=== PATIENT | female | born 1965 | race Caucasian/White ===

== ENCOUNTER → 2016-07-25 | Outpatient (CLI) | payer OTHER ==
[~2016-07-25] MED LIST: AMLODIPINE BESY1 TAB PO; BUSPIRONE HCL10 MG PO; DULOXETINE HCL60 MG PO; HYDROCHLOROTHIA25 M1 PO; KCL PO; KEFLEX500 MG PO; LASIX40 MG PO; LOSARTAN POTAS100 M1 PO; PROVENTIL0.09 MG/A1 INH; ZITHROMAX250 MG PO
== END | disposition home or self-care (01) ==
LOC: RAD 22:10
DX: M54.2 Cervicalgia (principal); M54.42 Lumbago with sciatica, left side; M25.511 Pain in right shoulder; M79.605 Pain in left leg

== ENCOUNTER → 2017-12-24 | Outpatient (CLI) | payer OTHER | END | disposition home or self-care (01) | LOC: CT 11:00 | DX: K80.20 Calculus of gallbladder without cholecystitis without obstruction (principal); E66.01 Morbid (severe) obesity due to excess calories ==

== ENCOUNTER → 2019-04-12 | Outpatient (CLI) | payer OTHER | END | disposition home or self-care (01) | LOC: MAMMO 00:15 | DX: Z12.31 Encounter for screening mammogram for malignant neoplasm of breast (principal) ==

== ENCOUNTER → 2021-02-13 | Outpatient (CLI) | payer OTHER | LOC: RAD 17:29 | PROVIDERS: ATTEND Family Medicine | DX: I51.7 Cardiomegaly (principal); R91.8 Other nonspecific abnormal finding of lung field; Z20.822 Contact with and (suspected) exposure to COVID-19 ==

== ENCOUNTER 2021-03-12 20:10 | Emergency (ER) | payer OTHER ==
[~2021-03-12] VITALS: Ht 157.4 cm; Wt 174.6 kg
[2021-03-12 21:36] LABS: BASO # 0.1 10*3/uL (0.0-0.1); BASO % 0.9 % (0.0-1.0); EOS # 0.2 10*3/uL (0.0-0.4); EOS % 1.4 % (1.0-4.0); HEMATOCRIT 38.2 % (37.0-47.0); LYMPH # 4.3 10*3/uL (1.3-4.4); LYMPH % 30.6 % (27.0-41.0); MEAN CELL VOLUME 88.6 fl (81.0-99.0); MEAN CORPUSCULAR HGB 29.7 pg (27.0-31.0); MEAN CORPUSCULAR HGB CONC 33.5 g/dl (33.0-37.0); MEAN PLATELET VOLUME 9.4 fl (9.6-12.3); MONO % 7.3 % (3.0-9.0); NEUT # 8.3 10*3/uL (2.3-7.9); NEUT % 59.4 % (47.0-73.0); PLATELET COUNT AUTOMATED 422 10*3/uL (130-400); RED BLOOD COUNT 4.31 10*6/uL (4.10-5.10); RED CELL DISTRI WIDTH 14.6 % (0-14.5)
[2021-03-12 21:38] LABS: ALBUMIN 2.7 gm/dl (3.1-4.5); ALKALINE PHOSPHATASE 97 U/L (45-117); BUN 17 mg/dl (7-24); CHLORIDE 106 mmol/L (98-107); CREATININE 0.97 mg/dL (0.55-1.02); POTASSIUM 3.7 mmol/L (3.5-5.1); SGOT/AST 21 IU/L (3-35); SGPT/ALT 32 U/L (12-78); SODIUM 140 mmol/L (136-145); TOTAL PROTEIN 6.9 gm/dL (6.4-8.2)
== END 2021-03-12 22:59 | disposition home or self-care (01) ==
LOC: ED 20:10
PROVIDERS: Physician Assistant
DX: S20.212A Contusion of left front wall of thorax, initial encounter (principal); S30.1XXA Contusion of abdominal wall, initial encounter; Z79.2 Long term (current) use of antibiotics; Z79.899 Other long term (current) drug therapy; Z98.890 Other specified postprocedural states; V49.59XA Passenger injured in collision with other motor vehicles in traffic accident, initial encounter; Y93.89 Activity, other specified; Y92.488 Other paved roadways as the place of occurrence of the external cause; Y99.8 Other external cause status

== ENCOUNTER 2021-08-21 19:22 | Observation (INO) | payer OTHER ==
[~2021-08-21] VITALS: Ht 157.4 cm; Wt 171.1 kg
[2021-08-21 20:23] VITALS: BP 116/78
[2021-08-21 23:21] LABS: BASO # 0.1 10*3/uL (0.0-0.1); BASO % 0.5 % (0.0-1.0); EOS # 0.1 10*3/uL (0.0-0.4); EOS % 0.8 % (1.0-4.0); HEMATOCRIT 37.4 % (37.0-47.0); LYMPH # 3.3 10*3/uL (1.3-4.4); LYMPH % 25.8 % (27.0-41.0); MEAN CORPUSCULAR HGB 29.8 pg (27.0-31.0); MEAN CORPUSCULAR HGB CONC 33.4 g/dl (33.0-37.0); MONO % 7.4 % (3.0-9.0); NEUT # 8.3 10*3/uL (2.3-7.9); NEUT % 65.2 % (47.0-73.0); PLATELET COUNT AUTOMATED 290 10*3/uL (130-400); RED CELL DISTRI WIDTH 14.2 % (0-14.5); WHITE BLOOD COUNT 12.8 10*3/uL (4.8-10.8)
[2021-08-21 23:36] LABS: BUN 17 mg/dl (7-24); CHLORIDE 107 mmol/L (98-107); POTASSIUM 3.5 mmol/L (3.5-5.1); SODIUM 138 mmol/L (136-145)
[2021-08-22 08:33] VITALS: BP 111/45
[2021-08-22 15:00] VITALS: BP 104/53
[2021-08-22 20:00] VITALS: BP 98/53
[2021-08-23] VITALS: BP 123/66
[2021-08-23 04:57] LABS: BUN 15 mg/dl (7-24); CHLORIDE 109 mmol/L (98-107); CREATININE 0.99 mg/dL (0.55-1.02); POTASSIUM 3.8 mmol/L (3.5-5.1); SODIUM 142 mmol/L (136-145)
[2021-08-23 06:21] LABS: BASO # 0.1 10*3/uL (0.0-0.1); BASO % 0.8 % (0.0-1.0); EOS # 0.2 10*3/uL (0.0-0.4); EOS % 2.6 % (1.0-4.0); HEMATOCRIT 36.4 % (37.0-47.0); LYMPH # 2.8 10*3/uL (1.3-4.4); LYMPH % 32.9 % (27.0-41.0); MEAN CELL VOLUME 90.5 fl (81.0-99.0); MEAN CORPUSCULAR HGB 30.1 pg (27.0-31.0); MEAN CORPUSCULAR HGB CONC 33.2 g/dl (33.0-37.0); MEAN PLATELET VOLUME 9.7 fl (9.6-12.3); MONO # 0.6 10*3/uL (0.1-1.0); MONO % 7.1 % (3.0-9.0); NEUT # 4.8 10*3/uL (2.3-7.9); NEUT % 56.4 % (47.0-73.0); PLATELET COUNT AUTOMATED 309 10*3/uL (130-400); RED BLOOD COUNT 4.02 10*6/uL (4.10-5.10); WHITE BLOOD COUNT 8.5 10*3/uL (4.8-10.8)
[2021-08-23 08:00] VITALS: BP 107/59
[2021-08-23 12:00] VITALS: BP 103/52
[2021-08-23 16:00] VITALS: BP 93/52
[2021-08-23 20:00] VITALS: BP 119/52
[2021-08-24] VITALS: BP 108/49
[2021-08-24 08:00] VITALS: BP 126/67
[2021-08-24 12:00] VITALS: BP 129/71
[2021-08-24 16:00] VITALS: BP 123/62
[2021-08-24 20:00] VITALS: BP 123/61
[2021-08-25] VITALS: BP 103/65
[2021-08-25 08:00] VITALS: BP 127/65
[2021-08-25 12:00] VITALS: BP 129/67
[2021-08-25 16:00] VITALS: BP 114/56
[2021-08-25 20:00] VITALS: BP 130/70
[2021-08-26] VITALS: BP 128/64
[2021-08-26] MEDS ORDERED: CIPRO500 MG PO (07:06)
[2021-08-26] MEDS ORDERED: Lasix PO (07:06)
[2021-08-26] MEDS ORDERED: POTASSIUM CHLO10 ME5 PO (07:06)
[2021-08-26 08:00] VITALS: BP 135/73
== END 2021-08-26 10:30 | disposition home or self-care (01) ==
LOC: ED 19:22 → EDHOLD 08-22 01:12 → 4E 08-22 14:22
PROVIDERS: Emergency Medicine; ADMIT Internal Medicine; ATTEND Internal Medicine
DX: L03.031 Cellulitis of right toe (principal); E66.01 Morbid (severe) obesity due to excess calories; N17.9 Acute kidney failure, unspecified; I87.2 Venous insufficiency (chronic) (peripheral); I89.0 Lymphedema, not elsewhere classified; I12.9 Hypertensive chronic kidney disease with stage 1 through stage 4 chronic kidney disease, or unspecified chronic kidney disease; N18.31 Chronic kidney disease, stage 3a; Z79.899 Other long term (current) drug therapy; R60.0 Localized edema